=== PATIENT | male | born 1955 | race Caucasian/White ===

== ENCOUNTER 2025-05-03 07:12 | Outpatient (CLI) | payer OTHER ==
[~2025-05-03] VITALS: Ht 167.6 cm; Wt 81.2 kg
[2025-05-03 07:50] VITALS: BP 120/70; O2SAT 100
[2025-05-03 08:50] VITALS: BP 146/86; O2SAT 99
[2025-05-03 09:15] VITALS: BP 162/73; O2SAT 100
[2025-05-03 09:30] VITALS: BP 157/76; O2SAT 100
== END 2025-05-03 15:57 | disposition home or self-care (01) ==
LOC: TOM 07:12
PROVIDERS: ATTEND Specialist
DX: D38.1 Neoplasm of uncertain behavior of trachea, bronchus and lung (principal)